=== PATIENT | female | born 1960 | race Caucasian/White ===

== ENCOUNTER 2021-02-12 13:38 | Observation (INO) | payer OTHER ==
[2021-02-12] MEDS ORDERED: Sodium Chloride 0.9% 1000 ML 1,000 ML IV STA (14:02)
--- NOTE | 2021-02-12 14:21 | ERPHSYRPT ---
- History of Present Illness Time Seen by Provider: 02/12/21 13:45 Patient Subjective Stated Complaint: PT HERE FOR A SYNCOPE EPISODE X2 TODAY, SHE ALSO HAS BLOODY STOOL THIS AM MORE THAN 10 WITH BRIGHT RED BLOOD, CO ABD CR AMPING Triage Nursing Assessment: PT ALERT, RESP EASY, FACE MASK IN PLACE, SKIN W/D/P, ABD SOFT Physician History: Patient is a 60-year-old female who has been camping at [facility] with her family she developed several episodes of bright red bloody stools. She has no leakage it only occurs with bowel movements she does have a history of colon cancer on 2 previous occasions with colon resection she also has a history of diverticulosis but does not believe she is a red diverticulitis and she has her last episode of colon cancer was 9 years ago she also has had 2 syncopal episodes today. Timing/Duration: today Activities at Onset: none Severity of Pain-Max: none Severity of Pain-Current: none Modifying Factors: Improves With: defecating Associated Symptoms: diarrhea, weakness Previous symptoms: no prior history Allergies/Adverse Reactions: No Known Drug Allergies Allergy (Unverified 02/12/21 13:46) Home Medications: Cetirizine HCl [Zyrtec] 1 ea DAILY 02/12/21 [History] Melatonin 1 ea DAILY 02/12/21 [History] hydroCHLOROthiazide [Hydrochlorothiazide] 1 ea DAILY 02/12/21 [History] Hx Influenza Vaccination/Date Given: No Hx Pneumococcal Vaccination/Date Given: No Immunizations Up to Date: Yes Travel Risk - International Travel Have you traveled outside of the country in past 3 weeks: No - Coronavirus Screening Are you exhibiting any of the following symptoms?: No Close contact with a COVID-19 positive Pt in past 14-21 Days: No - Vaccine Status Have you recieved a Covid-19 vaccination: Yes [employer] Observer: [employer] Constitutional: No Fever, No Chills Eyes: No Symptoms Ears, Nose, & Throat: No Symptoms Respiratory: No Cough, No Dyspnea Cardiac: No Chest Pain, No Edema, No Syncope Abdominal/Gastrointestinal: Hematochezia, No Abdominal Pain, No Nausea, No Vomiting, No Diarrhea Genitourinary Symptoms: No Dysuria Musculoskeletal: No Back Pain, No Neck Pain Skin: No Rash Neurological: No Dizziness, No Focal Weakness, No Sensory Changes Psychological: No Symptoms Endocrine: No Symptoms All Other Systems: Reviewed and Negative - Past Medical History Pertinent Past Medical History: Yes Respiratory History: Bronchitis Other Medical History: SHOULDER ROTATOR CUFF - Past Surgical History Past Surgical History: Yes Gastrointestinal: Colon Resection Female Surgical History: Section, Lumpectomy Other Surgical History: EARLY STAGE OF COLON CA 10 YEARS AGO - Social History Smoking Status: Current every day smoker Exposure to second hand smoke: Yes Drug Use: marijuana Patient Lives Alone: No - Female History Hx Last Menstrual Period: POST Hx Now: No - Nursing Vital Signs Nursing Vital Signs: Initial Vital Signs Temperature 97.2 F 02/12/21 13:39 Pulse Rate 78 02/12/21 13:39 Respiratory Rate 16 02/12/21 13:39 Blood Pressure 153/93 02/12/21 13:39 O2 Sat by Pulse Oximetry 96 02/12/21 13:39 Pain Scale Pain Intensity 4 - Physical Exam General Appearance: mild distress, alert Eye Exam: PERRL/EOMI, eyes nml inspection Ears, Nose, Throat Exam: normal ENT inspection, pharynx normal, moist mucous membranes Neck Exam: normal inspection, non-tender, supple, full range of motion Respiratory Exam: normal breath sounds, lungs clear, No respiratory distress Cardiovascular Exam: regular rate/rhythm, normal heart sounds Gastrointestinal/Abdomen Exam: soft, No tenderness, No mass Pelvic Exam: mass Rectal Exam: normal rectal tone, No mass Back Exam: normal inspection, normal range of motion, No CVA tenderness, No vertebral tenderness Extremity Exam: normal inspection, normal range of motion, pelvis stable Neurologic Exam: alert, oriented x 3, cooperative, normal mood/affect, nml cerebellar function, sensation nml, No motor deficits Skin Exam: normal color, warm, dry SpO2 Interpretation: normal SpO2: 96 O2 Delivery: Room Air - Course Nursing assessment & vital signs reviewed: Yes EKG Interpreted by Me: RATE (80), Sinus Rhythm, NORMAL AXIS, NORMAL INTERVALS, Non-specific ST Changes - CT Exams Abdomen/Pelvis CT Interpretation: Tele-radiologist Report Ordered Tests: Active Orders 24 hr Category Date Time Status EKG-ER Only STAT Care 02/12/21 14:02 Active IV Insertion STAT Care 02/12/21 14:02 Active NPO (ED) STAT Care 02/12/21 14:04 Active ABDOMEN AND PELVIS W/0 CONTRAS [CT] Stat Exams 02/12/21 14:46 Taken AMYLASE Stat Lab 02/12/21 14:28 Completed CBC W DIFF Stat Lab 02/12/21 14:28 Completed CMP Stat Lab 02/12/21 14:28 Completed FECAL OCCULT BLOOD - SCREENING Stat Lab 02/12/21 14:10 Completed LIPASE Stat Lab 02/12/21 14:28 Completed Lactic Acid Stat Lab 02/12/21 14:20 Completed PROTIME WITH INR Stat Lab 02/12/21 14:28 Completed TROPONIN Q3H Lab 02/12/21 14:28 Received TROPONIN Q3H Lab 02/12/21 17:15 Ordered TROPONIN Q3H Lab 02/12/21 20:15 Ordered TROPONIN Q3H Lab 02/12/21 23:15 Ordered TROPONIN Q3H Lab 02/13/21 02:15 Ordered UA W/RFX UR CULTURE Stat Lab 02/12/21 14:03 Ordered Medication Summary Discontinued Medications Generic Name Dose Route Start Last Admin Trade Name Freq PRN Reason Stop Dose Admin Sodium Chloride 1,000 mls @ 999 mls/hr 02/12/21 14:02 02/12/21 14:58 Sodium Chloride 0.9% 1000 Ml IV 02/12/21 15:02 999 mls/hr .Q1H1M STA Administration Sodium Chloride Confirm 02/12/21 14:57 Sodium Chloride 0.9% 1000 Ml Administered 02/12/21 14:58 Dose 1,000 mls @ ud .ROUTE .STK-MED ONE Lab/Rad Data: Laboratory Result Diagrams 02/12/21 14:28 02/12/21 14:28 Laboratory Results 02/12/21 02/12/21 02/12/21 Range/Units 14:28 14:28 14:28 WBC (4.0-10.5) K/mm3 RBC (4.1-5.4) M/mm3 Hgb (12.0-16.0) gm/dl Hct (35-47) % MCV (78-100) fl MCH (26-32) pg MCHC (32-36) g/dl RDW (11.5-14.0) % Plt Count (150-450) K/mm3 MPV (7.5-11.0) fl Gran % (36.0-66.0) % Eos # (Auto) (0-0.5) Absolute Lymphs (auto) (1.0-4.6) Absolute Monos (auto) (0.0-1.3) Lymphocytes % (24.0-44.0) % Monocytes % (0.0-12.0) % Eosinophils % (0.00-5.0) % Basophils % (0.0-0.4) % Absolute Granulocytes (1.4-6.9) Basophils # (0-0.4) PT 12.0 (9.95-12.35) SECONDS INR 1.06 (0.8-3.0) Sodium 137 (137-145) mmol/L Potassium 3.1 L (3.5-5.1) mmol/L Chloride 102 (98-107) mmol/L Carbon Dioxide 27 (22-30) mmol/L Anion Gap 11.7 (5-15) MEQ/L BUN 10 (7-17) mg/dL Creatinine 0.40 L (0.52-1.04) mg/dL Estimated GFR > 60.0 ML/MIN Glucose 318 H (74-106) mg/dL Lactic Acid (0.4-2.0) Calcium 9.1 (8.4-10.2) mg/dL Total Bilirubin 0.80 (0.2-1.3) mg/dL AST 49 H (14-36) U/L ALT 84 H (0-35) U/L Alkaline Phosphatase 119 (38-126) U/L Serum Total Protein 6.6 (6.3-8.2) g/dL Albumin 4.0 (3.5-5.0) g/dL Amylase 54 (30-110) U/L Lipase 121 (23-300) U/L Stool Occult Blood (NEGATIVE) ABO Group B Rh Factor POSITIVE Antibody Screen NEGATIVE (NEGATIVE) 02/12/21 02/12/21 02/12/21 Range/Units 14:28 14:20 14:10 WBC 10.2 (4.0-10.5) K/mm3 RBC 5.33 (4.1-5.4) M/mm3 Hgb 16.6 H (12.0-16.0) gm/dl Hct 45.8 (35-47) % MCV 85.9 (78-100) fl MCH 31.1 (26-32) pg MCHC 36.2 H (32-36) g/dl RDW 12.8 (11.5-14.0) % Plt Count 151 (150-450) K/mm3 MPV 10.6 (7.5-11.0) fl Gran % 79.6 H (36.0-66.0) % Eos # (Auto) 0.02 (0-0.5) Absolute Lymphs (auto) 1.45 (1.0-4.6) Absolute Monos (auto) 0.58 (0.0-1.3) Lymphocytes % 14.2 L (24.0-44.0) % Monocytes % 5.7 (0.0-12.0) % Eosinophils % 0.2 (0.00-5.0) % Basophils % 0.3 (0.0-0.4) % Absolute Granulocytes 8.16 H (1.4-6.9) Basophils # 0.03 (0-0.4) PT (9.95-12.35) SECONDS INR (0.8-3.0) Sodium (137-145) mmol/L Potassium (3.5-5.1) mmol/L Chloride (98-107) mmol/L Carbon Dioxide (22-30) mmol/L Anion Gap (5-15) MEQ/L BUN (7-17) mg/dL Creatinine (0.52-1.04) mg/dL Estimated GFR ML/MIN Glucose (74-106) mg/dL Lactic Acid 1.5 (0.4-2.0) Calcium (8.4-10.2) mg/dL Total Bilirubin (0.2-1.3) mg/dL AST (14-36) U/L ALT (0-35) U/L Alkaline Phosphatase (38-126) U/L Serum Total Protein (6.3-8.2) g/dL Albumin (3.5-5.0) g/dL Amylase (30-110) U/L Lipase (23-300) U/L Stool Occult Blood POSITIVE A (NEGATIVE) ABO Group Rh Factor Antibody Screen (NEGATIVE) - Progress Progress: improved Discussed with : John Will see patient in: hospital (observation) - Departure Departure Disposition: Observation Clinical Impression: Colitis, Hematochezia Condition: Stable Critical Care Time: No
[2021-02-12] MEDS ORDERED: Sodium Chloride 0.9% 1000 ML 1,000 ML ONE (14:57)
[2021-02-12 15:07] LABS: Absolute Neutrophil Ct (ANC) 8.16 (1.4-6.9); BASOPHIL % 0.3 % (0.0-0.4); Basophil (Absolute #) 0.03 (0-0.4); Eosinophil % 0.2 % (0.00-5.0); Eosinophil (Absolute #) 0.02 (0-0.5); Hematocrit 45.8 % (35-47); Hemoglobin 16.6 gm/dl (12.0-16.0); Lymphocyte (Absolute #) 1.45 (1.0-4.6); Lymphocytes % 14.2 % (24.0-44.0); Mean Cell Volume 85.9 fl (78-100); Mean Corpuscular Hemoglobin 31.1 pg (26-32); Mean Corpuscular Hgb Concent. 36.2 g/dl (32-36); Mean Platelet Volume 10.6 fl (7.5-11.0); Monocyte (Absolute #) 0.58 (0.0-1.3); Monocytes % 5.7 % (0.0-12.0); Neutrophil % 79.6 % (36.0-66.0); Platelet Count 151 K/mm3 (150-450); Red Blood Count 5.33 M/mm3 (4.1-5.4); Red Cell Distribution Width 12.8 % (11.5-14.0); White Blood Count 10.2 K/mm3 (4.0-10.5)
[2021-02-12 15:37] LABS: INR 1.06 (0.8-3.0)
[2021-02-12 15:40] LABS: ALKALINE PHOSPHATASE 119 U/L (38-126); AMYLASE 54 U/L (30-110); ANION GAP 11.7 MEQ/L (5-15); BLOOD UREA NITROGEN 10 mg/dL (7-17); CHLORIDE 102 mmol/L (98-107); Calcium 9.1 mg/dL (8.4-10.2); Carbon Dioxide 27 mmol/L (22-30); EST GLOMERULAR FILTRATION RATE > 60.0 ML/MIN; Glucose 318 mg/dL (74-106); LIPASE 121 U/L (23-300); Potassium 3.1 mmol/L (3.5-5.1); SGOT/AST 49 U/L (14-36); SGPT/ALT 84 U/L (0-35); SODIUM 137 mmol/L (137-145); Total Protein 6.6 g/dL (6.3-8.2)
[2021-02-12 15:55] LABS: ABO TYPING B; Antibody Screen NEGATIVE (NEGATIVE); RH TYPING POSITIVE
[2021-02-12] MEDS ORDERED: LEVOFLOXACIN 750MG/150ML D5W 750 MG/150 ML BAG IV ONE (16:13)
[2021-02-12] MEDS: Zofran 4 MG/2 ML VIAL IV PRN (16:18)
[2021-02-12] MEDS: Hydromorphone 1 mg/ml Injection IV PRN ×2 (16:18→20:41)
[2021-02-12] MEDS: Sodium Chloride 0.9% 1000 ML 1,000 ML IV SCH ×2 (16:18→21:56)
[2021-02-12] MEDS: LEVOFLOXACIN 750MG/150ML D5W 750 MG/150 ML BAG IV SCH (16:19)
[2021-02-12] MEDS: FLAGYL 500 MG IVPB 500 MG/100 ML BAG IV SCH (16:19)
[2021-02-12 17:06] LABS: INFLUENZA A NEGATIVE (NEGATIVE); INFLUENZA B NEGATIVE (NEGATIVE); RESPIRATORY SYNCTIAL VIRUS NEGATIVE (Negative)
--- NOTE | 2021-02-12 18:46 | XRAY ---
Indication: Diffuse abdominal pain. Blood in stool. Diarrhea. Multiple contiguous axial images obtained through the abdomen and pelvis without contrast. Comparison: None. Lung bases clear. Heart not enlarged. Small hiatal hernia. Incompletely visualized bilateral breast implants. Noncontrasted stomach and bowel loops nonobstructed. Appendix not seen. Mild scattered colonic diverticulosis. Descending and sigmoid demonstrates minimal pericolonic stranding favoring colitis. No free fluid/air. 2 nonobstructing right renal micro-calculi, largest 4 mm. Mild fatty liver. Remaining liver, gallbladder, pancreas, spleen, adrenal glands, kidneys, ureters, and bladder are unremarkable for noncontrast exam. Minimal aortic calcifications without AAA. Osseous structures intact. Impression: 1. Minimal descending and sigmoid colitis. 2. Incidental small hiatal hernia, colonic diverticulosis, fatty liver, and nonobstructing right renal micro-calculi. Comment: Preliminary interpretation was made by [facility]. No critical discrepancy.
[2021-02-12] MEDS: Nicoderm CQ 21 MG TOP SCH (18:50)
[2021-02-12 20:46] LABS: Appearance CLEAR (CLEAR); Bilirubin NEGATIVE (NEGATIVE); Blood NEGATIVE Ery/ul (0-5); Epithelial Cells RARE /HPF (FEW); Glucose >=500 mg/dL (NEGATIVE); Ketones TRACE (NEGATIVE); Leukocyte Esterase NEGATIVE (NEGATIVE); Nitrite NEGATIVE (NEGATIVE); Protein,Urine Dip NEGATIVE (Negative); RBC 0-2 /HPF (0-2); Specific Gravity 1.031 (1.005-1.025); Urobilinogen NEGATIVE mg/dL (0-1)
[2021-02-12] MEDS: CLARITIN 10 MG PO SCH (22:17)
[2021-02-12] MEDS: HUMALOG SQ PRN (22:18)
[2021-02-13] MEDS: Hydromorphone 1 mg/ml Injection IV PRN ×4 (00:50→16:33)
[2021-02-13] MEDS: FLAGYL 500 MG IVPB 500 MG/100 ML BAG IV SCH ×4 (00:56→18:03)
[2021-02-13] MEDS ORDERED: Hydromorphone 1 mg/ml Injection ONE (05:29)
--- NOTE | 2021-02-13 06:24 | PCM.HP ---
History of Present Illness - Chief Complaint Chief Complaint: colitis History of Present Illness: is a 60 year old female who presented to the ER last night, she is in [facility] so has no local physician. She developed sudden onset of chills and abdominal cramping then she developed diarrhea with visible blood, she is nauseated but has no vomiting. She has a known history of colon cancer x 2, she last had colonoscopy 3 years ago with no evidence of recurrence. She admits to a recent weight loss of 46 lbs and has been trying to lose weight, found to have new onset diabetes on arrival with a1c >12%. - Review of Systems Constitutional: No Fever, No Chills Respiratory: No Cough, No Short Of Breath Cardiac: No Chest Pain, No Edema, No Syncope Abdominal/Gastrointestinal: Abdominal Pain, Nausea, Diarrhea, Hematochezia, No Vomiting Genitourinary Symptoms: No Dysuria Skin: No Rash All Other Systems: Reviewed and Negative Medications & Allergies Home Medications: Home Medication List Cetirizine HCl [Zyrtec] 10 mg PO HS 02/12/21 [History Confirmed 02/12/21] Hydrochlorothiazide 25 mg [hydroDIURIL 25 MG] 25 mg PO HS 02/12/21 [History Confirmed 02/12/21] Melatonin 1 ea DAILY 02/12/21 [History Confirmed 02/12/21] Potassium Gluconate [Potassium] 99 mg PO DAILY PRN 02/12/21 [History Confirmed 02/12/21] Allergies/Adverse Reactions: Allergies Allergy/AdvReac Type Severity Reaction Status Date / Time No Known Drug Allergies Allergy Unverified 02/12/21 13:46 - Past Medical History Past Medical History: No Respiratory History: Bronchitis Comment: SHOULDER ROTATOR CUFF - Female History Hx Last Menstrual Period: POST Are you now?: No - Past Surgical History Past Surgical History: Yes GI Surgical History: Colon Resection Female Surgical History: Section, Lumpectomy Other Surgical History: EARLY STAGE OF COLON CA 10 YEARS AGO - Social History Smoking Status: Current every day smoker Exposure to second hand smoke: Yes Alcohol: Occasionally Drug Use: marijuana - Physical Exam Vital Signs: Vital Signs - 24 hr Temp Pulse Resp BP Pulse Ox 02/13/21 04:00 98.6 F 71 18 119/71 97 02/12/21 23:52 96.8 F 62 18 108/63 96 05/16/21 20:00 98.0 F 73 18 121/75 97 02/12/21 17:14 64 16 97/73 95 02/12/21 16:30 68 16 119/74 94 L 02/12/21 16:00 96 02/12/21 15:30 76 16 136/90 93 L 02/12/21 14:58 80 18 119/78 98 02/12/21 13:39 97.2 F 78 16 153/93 96 General Appearance: no apparent distress, alert Neurologic Exam: alert, oriented x 3, cooperative, normal mood/affect, nml cerebellar function, nml station & gait, sensation nml, No motor deficits Respiratory Exam: normal breath sounds, lungs clear, No respiratory distress Cardiovascular Exam: regular rate/rhythm, normal heart sounds, normal peripheral pulses Gastrointestinal/Abdomen Exam: soft, normal bowel sounds, tenderness (lower abdomen), No mass, No guarding, No rebound Extremity Exam: normal inspection, normal range of motion, pelvis stable Skin Exam: normal color, warm, dry, No rash Results - Labs Lab/Micro Results: Lab Results-Last 24 Hours 02/12/21 02/12/21 02/12/21 Range/Units 14:10 14:20 14:28 WBC 10.2 (4.0-10.5) K/mm3 RBC 5.33 (4.1-5.4) M/mm3 Hgb 16.6 H (12.0-16.0) gm/dl Hct 45.8 (35-47) % MCV 85.9 (78-100) fl MCH 31.1 (26-32) pg MCHC 36.2 H (32-36) g/dl RDW 12.8 (11.5-14.0) % Plt Count 151 (150-450) K/mm3 MPV 10.6 (7.5-11.0) fl Gran % 79.6 H (36.0-66.0) % Eos # (Auto) 0.02 (0-0.5) Absolute Lymphs (auto) 1.45 (1.0-4.6) Absolute Monos (auto) 0.58 (0.0-1.3) Lymphocytes % 14.2 L (24.0-44.0) % Monocytes % 5.7 (0.0-12.0) % Eosinophils % 0.2 (0.00-5.0) % Basophils % 0.3 (0.0-0.4) % Absolute Granulocytes 8.16 H (1.4-6.9) Basophils # 0.03 (0-0.4) PT (9.95-12.35) SECONDS INR (0.8-3.0) Sodium (137-145) mmol/L Potassium (3.5-5.1) mmol/L Chloride (98-107) mmol/L Carbon Dioxide (22-30) mmol/L Anion Gap (5-15) MEQ/L BUN (7-17) mg/dL Creatinine (0.52-1.04) mg/dL Estimated GFR ML/MIN Glucose (74-106) mg/dL POC Glucometer (74 to 106) mg/dL Hemoglobin A1c (4.5-6.0) % Lactic Acid 1.5 (0.4-2.0) Calcium (8.4-10.2) mg/dL Total Bilirubin (0.2-1.3) mg/dL AST (14-36) U/L ALT (0-35) U/L Alkaline Phosphatase (38-126) U/L Troponin I (0.000-0.034) ng/mL Serum Total Protein (6.3-8.2) g/dL Albumin (3.5-5.0) g/dL Amylase (30-110) U/L Lipase (23-300) U/L Urine Color (YELLOW) Urine Appearance (CLEAR) Urine pH (5-6) Ur Specific [place] (1.005-1.025) Urine Protein (Negative) Urine Ketones (NEGATIVE) Urine Blood (0-5) Ranjith/ul Urine Nitrite (NEGATIVE) Urine Bilirubin (NEGATIVE) Urine Urobilinogen (0-1) mg/dL Ur Leukocyte Esterase (NEGATIVE) Urine WBC (Auto) (0-5) /HPF Urine RBC (Auto) (0-2) /HPF U Epithel Cells (Auto) (FEW) /HPF Urine Bacteria (Auto) (NEGATIVE) /HPF Urine Culture Reflexed (NO) Urine Glucose (NEGATIVE) mg/dL Stool Occult Blood POSITIVE A (NEGATIVE) Influenza Type A Ag (NEGATIVE) Influenza Type B Ag (NEGATIVE) RSV (PCR) (Negative) SARS-CoV-2 (PCR) (NEGATIVE) ABO Group Rh Factor Antibody Screen (NEGATIVE) 02/12/21 02/12/21 02/12/21 Range/Units 14:28 14:28 14:28 WBC (4.0-10.5) K/mm3 RBC (4.1-5.4) M/mm3 Hgb (12.0-16.0) gm/dl Hct (35-47) % MCV (78-100) fl MCH (26-32) pg MCHC (32-36) g/dl RDW (11.5-14.0) % Plt Count (150-450) K/mm3 MPV (7.5-11.0) fl Gran % (36.0-66.0) % Eos # (Auto) (0-0.5) Absolute Lymphs (auto) (1.0-4.6) Absolute Monos (auto) (0.0-1.3) Lymphocytes % (24.0-44.0) % Monocytes % (0.0-12.0) % Eosinophils % (0.00-5.0) % Basophils % (0.0-0.4) % Absolute Granulocytes (1.4-6.9) Basophils # (0-0.4) PT 12.0 (9.95-12.35) SECONDS INR 1.06 (0.8-3.0) Sodium 137 (137-145) mmol/L Potassium 3.1 L (3.5-5.1) mmol/L Chloride 102 (98-107) mmol/L Carbon Dioxide 27 (22-30) mmol/L Anion Gap 11.7 (5-15) MEQ/L BUN 10 (7-17) mg/dL Creatinine 0.40 L (0.52-1.04) mg/dL Estimated GFR > 60.0 ML/MIN Glucose 318 H (74-106) mg/dL POC Glucometer (74 to 106) mg/dL Hemoglobin A1c (4.5-6.0) % Lactic Acid (0.4-2.0) Calcium 9.1 (8.4-10.2) mg/dL Total Bilirubin 0.80 (0.2-1.3) mg/dL AST 49 H (14-36) U/L ALT 84 H (0-35) U/L Alkaline Phosphatase 119 (38-126) U/L Troponin I (0.000-0.034) ng/mL Serum Total Protein 6.6 (6.3-8.2) g/dL Albumin 4.0 (3.5-5.0) g/dL Amylase 54 (30-110) U/L Lipase 121 (23-300) U/L Urine Color (YELLOW) Urine Appearance (CLEAR) Urine pH (5-6) Ur Specific [place] (1.005-1.025) Urine Protein (Negative) Urine Ketones (NEGATIVE) Urine Blood (0-5) Ranjith/ul Urine Nitrite (NEGATIVE) Urine Bilirubin (NEGATIVE) Urine Urobilinogen (0-1) mg/dL Ur Leukocyte Esterase (NEGATIVE) Urine WBC (Auto) (0-5) /HPF Urine RBC (Auto) (0-2) /HPF U Epithel Cells (Auto) (FEW) /HPF Urine Bacteria (Auto) (NEGATIVE) /HPF Urine Culture Reflexed (NO) Urine Glucose (NEGATIVE) mg/dL Stool Occult Blood (NEGATIVE) Influenza Type A Ag (NEGATIVE) Influenza Type B Ag (NEGATIVE) RSV (PCR) (Negative) SARS-CoV-2 (PCR) (NEGATIVE) ABO Group B Rh Factor POSITIVE Antibody Screen NEGATIVE (NEGATIVE) 02/12/21 02/12/21 02/12/21 Range/Units 14:28 14:28 16:19 WBC (4.0-10.5) K/mm3 RBC (4.1-5.4) M/mm3 Hgb (12.0-16.0) gm/dl Hct (35-47) % MCV (78-100) fl MCH (26-32) pg MCHC (32-36) g/dl RDW (11.5-14.0) % Plt Count (150-450) K/mm3 MPV (7.5-11.0) fl Gran % (36.0-66.0) % Eos # (Auto) (0-0.5) Absolute Lymphs (auto) (1.0-4.6) Absolute Monos (auto) (0.0-1.3) Lymphocytes % (24.0-44.0) % Monocytes % (0.0-12.0) % Eosinophils % (0.00-5.0) % Basophils % (0.0-0.4) % Absolute Granulocytes (1.4-6.9) Basophils # (0-0.4) PT (9.95-12.35) SECONDS INR (0.8-3.0) Sodium (137-145) mmol/L Potassium (3.5-5.1) mmol/L Chloride (98-107) mmol/L Carbon Dioxide (22-30) mmol/L Anion Gap (5-15) MEQ/L BUN (7-17) mg/dL Creatinine (0.52-1.04) mg/dL Estimated GFR ML/MIN Glucose (74-106) mg/dL POC Glucometer (74 to 106) mg/dL Hemoglobin A1c 12.85 H (4.5-6.0) % Lactic Acid (0.4-2.0) Calcium (8.4-10.2) mg/dL Total Bilirubin (0.2-1.3) mg/dL AST (14-36) U/L ALT (0-35) U/L Alkaline Phosphatase (38-126) U/L Troponin I < 0.012 (0.000-0.034) ng/mL Serum Total Protein (6.3-8.2) g/dL Albumin (3.5-5.0) g/dL Amylase (30-110) U/L Lipase (23-300) U/L Urine Color (YELLOW) Urine Appearance (CLEAR) Urine pH (5-6) Ur Specific [place] (1.005-1.025) Urine Protein (Negative) Urine Ketones (NEGATIVE) Urine Blood (0-5) Ranjith/ul Urine Nitrite (NEGATIVE) Urine Bilirubin (NEGATIVE) Urine Urobilinogen (0-1) mg/dL Ur Leukocyte Esterase (NEGATIVE) Urine WBC (Auto) (0-5) /HPF Urine RBC (Auto) (0-2) /HPF U Epithel Cells (Auto) (FEW) /HPF Urine Bacteria (Auto) (NEGATIVE) /HPF Urine Culture Reflexed (NO) Urine Glucose (NEGATIVE) mg/dL Stool Occult Blood (NEGATIVE) Influenza Type A Ag NEGATIVE (NEGATIVE) Influenza Type B Ag NEGATIVE (NEGATIVE) RSV (PCR) NEGATIVE (Negative) SARS-CoV-2 (PCR) NEGATIVE (NEGATIVE) ABO Group Rh Factor Antibody Screen (NEGATIVE) 02/12/21 02/12/21 Range/Units 20:39 20:53 WBC (4.0-10.5) K/mm3 RBC (4.1-5.4) M/mm3 Hgb (12.0-16.0) gm/dl Hct (35-47) % MCV (78-100) fl MCH (26-32) pg MCHC (32-36) g/dl RDW (11.5-14.0) % Plt Count (150-450) K/mm3 MPV (7.5-11.0) fl Gran % (36.0-66.0) % Eos # (Auto) (0-0.5) Absolute Lymphs (auto) (1.0-4.6) Absolute Monos (auto) (0.0-1.3) Lymphocytes % (24.0-44.0) % Monocytes % (0.0-12.0) % Eosinophils % (0.00-5.0) % Basophils % (0.0-0.4) % Absolute Granulocytes (1.4-6.9) Basophils # (0-0.4) PT (9.95-12.35) SECONDS INR (0.8-3.0) Sodium (137-145) mmol/L Potassium (3.5-5.1) mmol/L Chloride (98-107) mmol/L Carbon Dioxide (22-30) mmol/L Anion Gap (5-15) MEQ/L BUN (7-17) mg/dL Creatinine (0.52-1.04) mg/dL Estimated GFR ML/MIN Glucose (74-106) mg/dL POC Glucometer 326 H (74 to 106) mg/dL Hemoglobin A1c (4.5-6.0) % Lactic Acid (0.4-2.0) Calcium (8.4-10.2) mg/dL Total Bilirubin (0.2-1.3) mg/dL AST (14-36) U/L ALT (0-35) U/L Alkaline Phosphatase (38-126) U/L Troponin I (0.000-0.034) ng/mL Serum Total Protein (6.3-8.2) g/dL Albumin (3.5-5.0) g/dL Amylase (30-110) U/L Lipase (23-300) U/L Urine Color YELLOW (YELLOW) Urine Appearance CLEAR (CLEAR) Urine pH 5.0 (5-6) Ur Specific [place] 1.031 (1.005-1.025) Urine Protein NEGATIVE (Negative) Urine Ketones TRACE (NEGATIVE) Urine Blood NEGATIVE (0-5) Ranjith/ul Urine Nitrite NEGATIVE (NEGATIVE) Urine Bilirubin NEGATIVE (NEGATIVE) Urine Urobilinogen NEGATIVE (0-1) mg/dL Ur Leukocyte Esterase NEGATIVE (NEGATIVE) Urine WBC (Auto) NONE (0-5) /HPF Urine RBC (Auto) 0-2 (0-2) /HPF U Epithel Cells (Auto) RARE (FEW) /HPF Urine Bacteria (Auto) NONE (NEGATIVE) /HPF Urine Culture Reflexed NO (NO) Urine Glucose >=500 (NEGATIVE) mg/dL Stool Occult Blood (NEGATIVE) Influenza Type A Ag (NEGATIVE) Influenza Type B Ag (NEGATIVE) RSV (PCR) (Negative) SARS-CoV-2 (PCR) (NEGATIVE) ABO Group Rh Factor Antibody Screen (NEGATIVE) Accuchecks Date 02/12/21 Time 13:54 - Radiology Impressions Radiology Exams & Impressions: Radiology Procedures Category Date Time Status ABDOMEN AND PELVIS W/0 CONTRAS [CT] Stat Exams 02/12/21 14:46 Completed Assessment/Plan (1) Colitis Current Visit: Yes Status: Acute Assessment & Plan: continue levaquin and flagyl, will check GI pathogen panel. currently on clears Code(s): K52.9 - NONINFECTIVE GASTROENTERITIS AND COLITIS, UNSPECIFIED (2) Hematochezia Current Visit: Yes Status: Acute Assessment & Plan: I believe this is related to infectious etiology, acute onset with chills and diarrhea with colitis changes on CT. Surgery has been consulted due to remote history of colon cancer but again I feel her clinical picture fits with infectious colitis Code(s): K92.1 - MELENA (3) New onset type 2 diabetes mellitus Current Visit: Yes Status: Acute Code(s): E11.9 - TYPE 2 DIABETES MELLITUS WITHOUT COMPLICATIONS (4) History of colon cancer Current Visit: Yes Status: Acute Code(s): Z85.038 - PERSONAL HISTORY OF MALIGNANT NEOPLASM OF LARGE INTESTINE
[2021-02-13 06:36] LABS: Absolute Neutrophil Ct (ANC) 6.12 (1.4-6.9); BASOPHIL % 0.3 % (0.0-0.4); Basophil (Absolute #) 0.03 (0-0.4); Eosinophil % 1.3 % (0.00-5.0); Eosinophil (Absolute #) 0.15 (0-0.5); Hematocrit 45.7 % (35-47); Hemoglobin 16.2 gm/dl (12.0-16.0); Lymphocyte (Absolute #) 4.32 (1.0-4.6); Lymphocytes % 37.7 % (24.0-44.0); Mean Cell Volume 89.4 fl (78-100); Mean Corpuscular Hemoglobin 31.7 pg (26-32); Mean Corpuscular Hgb Concent. 35.4 g/dl (32-36); Mean Platelet Volume 11.2 fl (7.5-11.0); Monocyte (Absolute #) 0.84 (0.0-1.3); Monocytes % 7.3 % (0.0-12.0); Neutrophil % 53.4 % (36.0-66.0); Platelet Count 148 K/mm3 (150-450); Red Blood Count 5.11 M/mm3 (4.1-5.4); Red Cell Distribution Width 13.5 % (11.5-14.0); White Blood Count 11.5 K/mm3 (4.0-10.5)
[2021-02-13] MEDS: TYLENOL 325 MG PO PRN ×2 (06:47→19:56)
[2021-02-13] MEDS ORDERED: POTASSIUM GLUCONATE 99 MG PO PRN (07:11)
[2021-02-13] MEDS ORDERED: MEDICATION INTERVENTION PO SCH ×2 (07:30)
[2021-02-13] MEDS: Lantus Insulin SQ SCH (08:15)
[2021-02-13 08:18] LABS: ALBUMIN 3.5 g/dL (3.5-5.0); ALKALINE PHOSPHATASE 68 U/L (38-126); ANION GAP 8.4 MEQ/L (5-15); BLOOD UREA NITROGEN 7 mg/dL (7-17); CHLORIDE 103 mmol/L (98-107); Calcium 8.2 mg/dL (8.4-10.2); Carbon Dioxide 28 mmol/L (22-30); Creatinine 1 0.49 mg/dL (0.52-1.04); EST GLOMERULAR FILTRATION RATE > 60.0 ML/MIN; Glucose 195 mg/dL (74-106); Potassium 3.1 mmol/L (3.5-5.1); SGOT/AST 48 U/L (14-36); SGPT/ALT 76 U/L (0-35); SODIUM 137 mmol/L (137-145)
[2021-02-13] MEDS ORDERED: hydroDIURIL 25 MG PO SCH ×2 (09:45→22:00)
[2021-02-13] MEDS ORDERED: MELATONIN PO SCH (10:00)
[2021-02-13] MEDS: HUMALOG SQ PRN (14:55)
--- NOTE | 2021-02-13 15:39 | CONS ---
CONSULT DATE: 02/13/2021 HISTORY: A 60 year-old is here from [place]town [facility]. She had some popcorn over the weekend and had some bright rectal bleeding on Saturday and again yesterday. She came in and she had CT scan show some colitis and she has had diverticulosis in the past as well. Her hemoglobin is 16 range and it is still in the 16 today. She is actually feeling a little better now. She states she had passed a small amount of blood earlier but now just passing gas. She is not having any bloody stools. She is feeling better and tolerating liquids well. No change in her pain. She had a prior colonoscopy about two years ago by a doctor in [place], she said. She has had some polyps in the past. 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 She states she did not have a partial colectomy. 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 PAST SURGICAL HISTORY: section. Lumpectomy. Bladder suspension in the past. Hysterectomy in the past. Rotator cuff in the past. Skin cancers removed from her leg and skin lesion removed from the hand. MEDICATIONS: Cetirizine, melatonin, hydrochlorothiazide. ALLERGIES: NKDA. FAMILY HISTORY: Negative in regards to this specific problem. SOCIAL HISTORY: One pack per day smoker. LAB DATA AND TESTS: INR normal 1.06. Liver function tests okay. Lipase okay on admission. CT scan showed minimal inflammation descending and sigmoid colon whether colitis or diverticulitis or other etiology. It could be infectious, could be transient ischemia. She is afebrile and hemodynamically stable now tolerating clear liquids, passing gas. She has not had any more bloody stools. Her hemoglobin is in the 16 range which is stable from yesterday. REVIEW OF SYSTEMS: Fourteen systems reviewed. Negative or noncontributory as above and per preadmission questionnaire. PHYSICAL EXAMINATION: GENERAL: No acute distress. HEENT: Sclera nonicteric. NECK: No JVD. CHEST: Equal excursion, nonlabored breathing. CVS: Regular rhythm and pulse. ABDOMEN: Very soft. No peritoneal signs currently. EXTREMITIES: No cyanosis. NEURO: Alert, seems to be moving extremities symmetrically. PSYCH: Appropriate mood and affect. IMPRESSION: Hematochezia, some abdominal aches. CT scan suggesting possible colitis or diverticulitis could be in the differential. Either way she has improved. Her hemoglobin is stable. No need for any emergent surgery. She was discussed options considering colonoscopy. As she is improving she could wait and have a follow up colonoscopy in few weeks with her local physician as she is from out of town. She understands that if she for some reason worsens she could consider endoscopy this admission if she started bleeding more. Either way no emergent general surgery necessary. Again, I do feel she would benefit from colonoscopy in five to six weeks if she continues to improve on her own. Her last colonoscopy was three years ago according to the patient. She understands and agrees to the plan, continue medical management possibly Dr. Cortes may let her be released tomorrow and release her on some oral antibiotics and have her follow up with her local physician with follow up colonoscopy possibly six to eight weeks. I will be available if needed. I will call and check on her status tomorrow.
[2021-02-13] MEDS: Nicoderm CQ 21 MG TOP SCH (18:03)
[2021-02-13] MEDS: Zofran 4 MG/2 ML VIAL IV PRN (18:52)
[2021-02-13] MEDS: CLARITIN 10 MG PO SCH (21:46)
[2021-02-14] MEDS: FLAGYL 500 MG IVPB 500 MG/100 ML BAG IV SCH ×2 (02:47→09:53)
[2021-02-14 05:06] LABS: Absolute Neutrophil Ct (ANC) 4.31 (1.4-6.9); BASOPHIL % 0.4 % (0.0-0.4); Basophil (Absolute #) 0.03 (0-0.4); Eosinophil % 1.8 % (0.00-5.0); Eosinophil (Absolute #) 0.14 (0-0.5); Hematocrit 39.8 % (35-47); Lymphocyte (Absolute #) 2.74 (1.0-4.6); Lymphocytes % 35.4 % (24.0-44.0); Mean Cell Volume 88.8 fl (78-100); Mean Corpuscular Hemoglobin 31.3 pg (26-32); Mean Corpuscular Hgb Concent. 35.2 g/dl (32-36); Mean Platelet Volume 10.8 fl (7.5-11.0); Monocyte (Absolute #) 0.52 (0.0-1.3); Monocytes % 6.7 % (0.0-12.0); Neutrophil % 55.7 % (36.0-66.0); Platelet Count 128 K/mm3 (150-450); Red Blood Count 4.48 M/mm3 (4.1-5.4); Red Cell Distribution Width 13.2 % (11.5-14.0); White Blood Count 7.7 K/mm3 (4.0-10.5)
[2021-02-14 05:20] LABS: ALBUMIN 3.1 g/dL (3.5-5.0); ALKALINE PHOSPHATASE 57 U/L (38-126); ANION GAP 8.3 MEQ/L (5-15); BLOOD UREA NITROGEN 4 mg/dL (7-17); CHLORIDE 104 mmol/L (98-107); Calcium 8.2 mg/dL (8.4-10.2); Carbon Dioxide 28 mmol/L (22-30); Creatinine 1 0.42 mg/dL (0.52-1.04); EST GLOMERULAR FILTRATION RATE > 60.0 ML/MIN; Glucose 131 mg/dL (74-106); SGOT/AST 54 U/L (14-36); SGPT/ALT 81 U/L (0-35); SODIUM 138 mmol/L (137-145); Total Protein 5.4 g/dL (6.3-8.2)
[2021-02-14 05:30] LABS: Potassium 2.6 mmol/L (3.5-5.1)
[2021-02-14] MEDS ORDERED: POTASSIUM CHLORIDE 20 mEq IN WATER 100ML 20 MEQ/100 ML BAG IV SCH (06:00)
[2021-02-14] MEDS: Sodium Chloride 0.9% 1000 ML 1,000 ML IV SCH (06:07)
[2021-02-14] MEDS ORDERED: Potassium Chloride 40 MEQ/20 ML VIAL 40 MEQ, XYLOCAINE 1% HCL 20 ML MDV*** 2 ML in Sodi... IV ONE (07:30)
[2021-02-14] MEDS: Lantus Insulin SQ SCH (07:48)
--- NOTE | 2021-02-14 08:48 | PCM.DS ---
Discharge Summary Date of Admission: 02/12/21 18:00 Admitting Physician: MELBA LAL Consults: Consults on Case 02/12/21 18:41 Consult Surgery ROUTINE Primary Care Provider: NO FAMILY DOCTOR Allergies Allergies No Known Drug Allergies Allergy (Unverified 02/12/21 13:46) Hospital Summary - Hospital Course Hospital Course: Pt is a 60 yo female pt of Dr. Bronson Puga with PMHx colon ca who was admitted through ER with colitis, rectal bleeding, and new onset DM (with A1c >12). She was started on IV levaquin and flagyl (day #2) and is feeling really well this morning - denies any pain and no hematochezia. C/o some CAMACHO today. Surgery did consult, thank you, about the blood in the stool and discussed doing a f/u colonoscopy when her colitis has resolved. She is tolerating CLD - will advance to bland and if tolerating well will discharge to home today on levaquin and flagyl po. Will start glimeperide along with 10 units lantus daily for the diabetes (with humalog low dose SS), although I anticipate she will need an increased dose. She is to f/u with Dr. Puga in 1 week about this. - Vitals & Intake/Output Vital Signs: Vital Signs Temperature 97.9 F 02/14/21 07:33 Pulse Rate 70 02/14/21 07:33 Respiratory Rate 16 02/14/21 07:33 Blood Pressure 113/82 02/14/21 07:33 O2 Sat by Pulse Oximetry 95 02/14/21 07:33 Intake & Output: Intake & Output 02/11/21 02/12/21 02/13/21 02/14/21 11:59 11:59 11:59 11:59 Intake Total 2340 1459 Output Total 525 3050 Balance 1815 -1591 Weight 73 kg - Lab Result Diagrams: 02/14/21 04:33 02/14/21 04:33 Lab Results-Last 24 Hrs: Lab Results-Last 24 Hours 02/13/21 02/13/21 02/13/21 Range/Units 11:09 15:25 21:20 WBC (4.0-10.5) K/mm3 RBC (4.1-5.4) M/mm3 Hgb (12.0-16.0) gm/dl Hct (35-47) % MCV (78-100) fl MCH (26-32) pg MCHC (32-36) g/dl RDW (11.5-14.0) % Plt Count (150-450) K/mm3 MPV (7.5-11.0) fl Gran % (36.0-66.0) % Eos # (Auto) (0-0.5) Absolute Lymphs (auto) (1.0-4.6) Absolute Monos (auto) (0.0-1.3) Lymphocytes % (24.0-44.0) % Monocytes % (0.0-12.0) % Eosinophils % (0.00-5.0) % Basophils % (0.0-0.4) % Absolute Granulocytes (1.4-6.9) Basophils # (0-0.4) Sodium (137-145) mmol/L Potassium (3.5-5.1) mmol/L Chloride (98-107) mmol/L Carbon Dioxide (22-30) mmol/L Anion Gap (5-15) MEQ/L BUN (7-17) mg/dL Creatinine (0.52-1.04) mg/dL Estimated GFR ML/MIN Glucose (74-106) mg/dL POC Glucometer 267 H 245 H 153 H (74 to 106) mg/dL Calcium (8.4-10.2) mg/dL Total Bilirubin (0.2-1.3) mg/dL AST (14-36) U/L ALT (0-35) U/L Alkaline Phosphatase (38-126) U/L Serum Total Protein (6.3-8.2) g/dL Albumin (3.5-5.0) g/dL 02/14/21 02/14/21 02/14/21 Range/Units 04:33 04:33 07:16 WBC 7.7 (4.0-10.5) K/mm3 RBC 4.48 (4.1-5.4) M/mm3 Hgb 14.0 (12.0-16.0) gm/dl Hct 39.8 (35-47) % MCV 88.8 (78-100) fl MCH 31.3 (26-32) pg MCHC 35.2 (32-36) g/dl RDW 13.2 (11.5-14.0) % Plt Count 128 L (150-450) K/mm3 MPV 10.8 (7.5-11.0) fl Gran % 55.7 (36.0-66.0) % Eos # (Auto) 0.14 (0-0.5) Absolute Lymphs (auto) 2.74 (1.0-4.6) Absolute Monos (auto) 0.52 (0.0-1.3) Lymphocytes % 35.4 (24.0-44.0) % Monocytes % 6.7 (0.0-12.0) % Eosinophils % 1.8 (0.00-5.0) % Basophils % 0.4 (0.0-0.4) % Absolute Granulocytes 4.31 (1.4-6.9) Basophils # 0.03 (0-0.4) Sodium 138 (137-145) mmol/L Potassium 2.6 L* (3.5-5.1) mmol/L Chloride 104 (98-107) mmol/L Carbon Dioxide 28 (22-30) mmol/L Anion Gap 8.3 (5-15) MEQ/L BUN 4 L (7-17) mg/dL Creatinine 0.42 L (0.52-1.04) mg/dL Estimated GFR > 60.0 ML/MIN Glucose 131 H (74-106) mg/dL POC Glucometer 144 H (74 to 106) mg/dL Calcium 8.2 L (8.4-10.2) mg/dL Total Bilirubin 1.00 (0.2-1.3) mg/dL AST 54 H (14-36) U/L ALT 81 H (0-35) U/L Alkaline Phosphatase 57 (38-126) U/L Serum Total Protein 5.4 L (6.3-8.2) g/dL Albumin 3.1 L (3.5-5.0) g/dL Micro Results-Entire Visit: Accuchecks Date 02/13/21 - Radiology Exams Ordered Rad Exams-Entire Visit: Radiology Procedures Category Date Time Status ABDOMEN AND PELVIS W/0 CONTRAS [CT] Stat Exams 02/12/21 14:46 Completed Discharge Exam General Appearance: no apparent distress, alert Neurologic Exam: oriented x 3, cooperative Eye Exam: eyes nml inspection Ears, Nose, Throat Exam: moist mucous membranes Neck Exam: normal inspection Respiratory Exam: normal breath sounds, lungs clear, No crackles/rales, No rhonchi, No wheezing Cardiovascular Exam: regular rate/rhythm, normal heart sounds, No murmur Gastrointestinal/Abdomen Exam: soft, normal bowel sounds, tenderness (RUQ and suprapubic) Back Exam: normal inspection, No rash Extremity Exam: normal inspection, No pedal edema, No swelling Skin Exam: normal color, warm, dry, No rash Final Diagnosis/Problem List - Final Discharge Diagnosis/Problem (1) Colitis Current Visit: Yes Status: Acute Assessment & Plan: D/c home to finish 10d of levaquin and flagyl. Pt is to be on probiotic or eat yogurt daily while on abx (discussed with pt). Code(s): K52.9 - NONINFECTIVE GASTROENTERITIS AND COLITIS, UNSPECIFIED (2) Hematochezia Current Visit: Yes Status: Acute Assessment & Plan: f/u with surgery re: colonoscopy. Code(s): K92.1 - MELENA (3) History of colon cancer Current Visit: Yes Status: Chronic Code(s): Z85.038 - PERSONAL HISTORY OF MALIGNANT NEOPLASM OF LARGE INTESTINE (4) New onset type 2 diabetes mellitus Current Visit: Yes Status: Chronic Assessment & Plan: Home on insulin, will likely need to increase - lantus and humalog (SS). Code(s): E11.9 - TYPE 2 DIABETES MELLITUS WITHOUT COMPLICATIONS - Discharge Disposition: Home, Self-Care Condition: Good Prescriptions: New Metronidazole 500 mg [Flagyl 500 MG] 500 mg PO TID #24 tablet Insulin Lispro [Humalog Kwikpen U-100] 5 unit SQ TID PRN #1 insuln.pen PRN Reason: Hyperglycemia Insulin Glargine,Hum.rec.anlog [Lantus Solostar] 10 unit SQ DAILY #3 ml Levofloxacin [Levaquin] 500 mg PO DAILY #8 tablet Continue Melatonin 1 ea DAILY Hydrochlorothiazide 25 mg [hydroDIURIL 25 MG] 25 mg PO HS Cetirizine HCl [Zyrtec] 10 mg PO HS Potassium Gluconate [Potassium] 99 mg PO DAILY PRN PRN Reason: supplement Instructions: Hyperglycemia, Adult, Diabetes Diet
[2021-02-14] MEDS: LEVOFLOXACIN 750MG/150ML D5W 750 MG/150 ML BAG IV SCH (11:10)
[2021-02-14 16:05] VITALS: BP 143/74; PULSE 69; O2SAT 99
== END 2021-02-14 16:20 | disposition home or self-care (01) ==
LOC: ED 13:38 → MED SURG 18:00
PROVIDERS: ADMIT Family Medicine; ATTEND Family Medicine
DX: K52.9 Noninfective gastroenteritis and colitis, unspecified (principal); R55 Syncope and collapse; R11.10 Vomiting, unspecified; K92.1 Melena; Z79.899 Other long term (current) drug therapy; Z85.038 Personal history of other malignant neoplasm of large intestine; E11.9 Type 2 diabetes mellitus without complications; Z79.4 Long term (current) use of insulin; F17.200 Nicotine dependence, unspecified, uncomplicated; Z20.828 Contact with and (suspected) exposure to other viral communicable diseases
CPT/HCPCS: 0241U; 36415; 74176; 80053; 81001; 82150; 82274; 82947; 83036; 83605; 83690; 84132; 84484; 85025; 85610; 86850; 86900; 86901; 93005; 93268; 96360; 96365; 96374; 96375; 99285; G0378; J1170; J1817; J1956; J2405; J3480; A9270-GY; G0328